=== PATIENT | male | born 1990 | race Caucasian/White ===

== ENCOUNTER 2018-04-10 06:35 | Emergency (ER) | payer SELFPAY ==
[~2018-04-10] VITALS: Ht 167.6 cm; Wt 68.0 kg
[2018-04-10 06:39] VITALS: Ht 167.6 cm; Wt 68.0 kg
[2018-04-10] MEDS ORDERED: ZYPREXA5 MG (06:39)
[2018-04-10] MEDS ORDERED: HALDOL5 MG (06:39)
[2018-04-10] MEDS ORDERED: SEROQUEL300 MG (06:40)
[2018-04-10] MEDS ORDERED: ABILIFY2 MG PO (06:40)
[2018-04-10] MEDS ORDERED: ZYPREXA15 MG PO (06:42)
[2018-04-10] MEDS ORDERED: SEROQUEL200 MG PO (06:42)
[2018-04-10] MEDS ORDERED: ABILIFY10 MG PO (06:42)
[2018-04-10 06:54] VITALS: BP 112/76
== END 2018-04-10 06:57 | disposition home or self-care (01) ==
LOC: D.ER 06:35
DX: F28 Other psychotic disorder not due to a substance or known physiological condition (principal)